=== PATIENT | male | born 1965 | race Caucasian/White ===

== ENCOUNTER 2024-01-02 18:17 | Emergency (ER) | payer BC ==
[~2024-01-02] VITALS: Ht 182.9 cm; Wt 95.0 kg
[2024-01-02 18:36] VITALS: O2SAT 98
[2024-01-02 20:21] VITALS: BP 167/86; PULSE 67; RESP 18; TEMP 98
== END 2024-01-02 20:23 | disposition home or self-care (01) ==
LOC: ER 18:17
DX: S02.85XA Fracture of orbit, unspecified, initial encounter for closed fracture (principal); S02.40FA Zygomatic fracture, left side, initial encounter for closed fracture; V49.49XA Driver injured in collision with other motor vehicles in traffic accident, initial encounter; Y93.89 Activity, other specified; Y92.89 Other specified places as the place of occurrence of the external cause; Y99.8 Other external cause status
CPT/HCPCS: 70486; 99284